=== PATIENT | female | born 1955 | race Caucasian/White ===

== ENCOUNTER 2016-09-11 11:42 | Emergency (ER) | payer BC ==
--- NOTE | 2016-09-11 13:41 | ED ---
Skin Complaint - HPI Summary HPI Summary: Patient presents with approximately 1 week of worsening redness in the left knee with now streaking red down the left leg. She originally thought is was a bug bite that became infected. She has used salt water soaks without relief. She has called Dr. Valle this morning who told her to come to the ED to r/o osteomyelitis or abscess. Denies hx of diabetes, gout or MRSA. She denies any previous bursitis or trauma to the knee recent or past. She does have a history of breast CA. She is afebrile on arrival. She is otherwise feeling well and denies aches, sweats or chills. - History of Current Complaint Chief Complaint: EDExtremityLower Time Seen by Provider: 09/11/16 13:23 Stated Complaint: SWELLING IN LEFT LEG Hx Obtained From: Patient Onset/Duration: Started Days Ago Skin Exposure Onset/Duration: Days Ago Timing: Constant Onset Severity: Worse Since: - yesterday Current Severity: Moderate Pain Intensity: 1 Pain Scale Used: 0-10 Numeric Skin Location: Leg, Other: - left knee and leg Character: Pain, Redness Aggravating Symptom(s): Touch Alleviating Symptom(s): Nothing Associated Signs & Symptoms: Tenderness, Red Streaks Related History: Other: - unknown - Additional Pertinent History Referred By: Other - Dr Valle - ortho - Allergy/Home Medications Allergies/Adverse Reactions: Allergies Allergy/AdvReac Type Severity Reaction Status Date / Time ENVIRONMENT Allergy STUFFY Uncoded 05/03/15 10:20 PMH/Surg Hx/FS Hx/Imm Hx Previously Healthy: Yes Sensory History: Reports: Hx Contacts or Glasses - GLASSES Denies: Hx Hearing Aid Opthamlomology History: Reports: Hx Contacts or Glasses - GLASSES Psychiatric History: Reports: Hx Anxiety - NO MEDS NEEDED - Cancer History Hx Chemotherapy: No Hx Radiation Therapy: Yes - BREAST - Surgical History Surgery Procedure, Year, and Place: [facility] Hx Anesthesia Reactions: Yes - 2008 VOMITING/ - Immunization History Hx Pertussis Vaccination: No Immunizations Up to Date: Unable to Obtain/Confirm Infectious Disease History: No Infectious Disease History: Denies: Traveled Outside the [place] in Last 30 Days - Social History Occupation: Employed Full-time Lives: With Family Alcohol Use: Weekly Hx Substance Use: No Substance Use Type: Reports: None Hx Tobacco Use: No Smoking Status (MU): Never Smoked Tobacco Do You Chew or Dip Tobacco: No Review of Systems Constitutional: Negative Eyes: Negative Cardiovascular: Negative Respiratory: Negative Positive: no symptoms reported, see HPI Positive: Rash Neurological: Negative Psychological: Normal All Other Systems Reviewed And Are Negative: Yes Physical Exam Triage Information Reviewed: Yes Vital Signs On Initial Exam: Initial Vitals Temp Pulse Resp BP Pulse Ox 97.7 F 67 20 111/82 100 09/11/16 11:52 09/11/16 11:52 09/11/16 11:52 09/11/16 11:52 09/11/16 11:52 Vital Signs Reviewed: Yes Appearance: Positive: Well-Appearing, Well-Nourished Skin: Positive: Warm, Other - small 2X2 slightly raised non-fluctuant area just inferior to the left knee over tibial tuberocity Diagnostics - Vital Signs Vital Signs Temp Pulse Resp BP Pulse Ox 09/11/16 11:54 97.7 F 67 20 111/82 100 09/11/16 11:52 97.7 F 67 20 111/82 100 - Laboratory Result Diagrams: 09/11/16 15:25 09/11/16 15:25 Lab Statement: Any lab studies that have been ordered have been reviewed, and results considered in the medical decision making process. Course/Dx - Course Course Of Treatment: Patient presents with left knee pain, redness, slightly raised bump just inferior to the left knee over tibial tuberosity. Slight pain on palpation. Red streaking and slight warmth down the left leg. Dr. Antunez advised her to come to ED to r/o absecess or osteomyelitis. There is no obvious fluctuant mass. The mass over knee is 2X2 non-fluctuant and would not require drainage. D/t extension down the leg, this is bacterial and will need ABX. Bursitis is less likely based on the streaking nature down the leg to the ankle. There is no ankle or foot involvement. No hx of gout and patient drinks very rarely. non-smoker. She is active, but has never had problems with her knees in the past and she denies trauma or gradual pain over the knee. The mass and pain was acute at onset and has been worsening. She denies allergies. WBC WNL, ESR OK. CRP slightly elevated at 17. Will treat with 7 days Keflex and patient will follow up with PCP in 2 days for a skin check. Return precautions given. Patient agrees to follow up and instructions and is OK to discharge. - Differential Diagnoses - Skin Complaint Differential Diagnoses: Cellulitis, Local Allergic Reaction, Urticaria - Diagnoses Provider Diagnoses: Cellulitis Discharge - Discharge Plan Condition: Stable Disposition: HOME Prescriptions: Cephalexin CAP* [Keflex CAP*] 500 mg PO QID #28 cap MDD 4 Patient Education Materials: Cellulitis (ED) Referrals: Kathia Bazzi MD [Primary Care Provider] - Additional Instructions: Follow up with PCP in 2 days for skin check Continue with antibiotics as prescribed for 7 days If you develop worsening redness, streaking of redness down the leg, you develop a fever or have any worsening signs, come back to ED immediately.
--- NOTE | 2016-09-11 14:36 | RAD ---
HISTORY: Swelling of left leg COMPARISONS: None VIEWS: 4, Frontal, lateral, axial, and oblique views of the left knee FINDINGS: BONE DENSITY: Normal. BONES: There is no displaced fracture. There is no appreciable erosion or periosteal reaction. JOINTS: There is no arthropathy. There is no suprapatellar joint effusion or lipohemarthrosis. ALIGNMENT: There is no dislocation. SOFT TISSUES: Unremarkable. OTHER FINDINGS: None. IMPRESSION: NO ACUTE OSSEOUS INJURY. IF SYMPTOMS PERSIST, RECOMMEND REPEAT IMAGING.
[2016-09-11 15:40] LABS: Hematocrit 40 % (35-47); Hemoglobin 13.1 g/dl (12.0-16.0); Mean Corpuscular HGB Conc 33 g/dl (31-36); Mean Corpuscular Hemoglobin 30 pg (27-31); Mean Corpuscular Volume 93 fL (80-97); Mean Platelet Volume 9 um3 (7.4-10.4); Red Blood Count 4.34 10^6/ul (4.0-5.4); Red Cell Distribution Width 13 % (10.5-15); White Blood Count 8.5 10^3/ul (3.5-10.8)
[2016-09-11 15:55] LABS: Albumin 4.2 g/dL (3.2-5.2); BUN/Creatinine Ratio 16.5 (8-20); C Reactive Protein 13.29 mg/L (< 5.00); Calcium 9.2 mg/dL (8.6-10.3); EGFR African American 81.4 (>60); EGFR Non-African American 63.3 (>60); Globulin 2.4 g/dL (2-4); Potassium 3.7 mmol/L (3.5-5.0); Total Bilirubin 0.5 mg/dL (0.2-1.0); Total Protein 6.6 g/dL (6.4-8.9); Uric Acid 4.2 mg/dL (2.3-6.6)
[2016-09-11 16:35] VITALS: BP 121/68
[2016-09-11 16:50] LABS: Erythrocyte Sed Rate 14 mm/Hr (0-30)
== END 2016-09-11 16:36 | disposition home or self-care (01) ==
LOC: ED 11:42
DX: L03.90 Cellulitis, unspecified (principal); R21 Rash and other nonspecific skin eruption
CPT/HCPCS: 36415; 80053; 83874; 84550; 85025; 85652; 86140; 87040; 99282